=== PATIENT | female | born 1990 | race American Indian/Alaskan Native ===

== ENCOUNTER 2016-08-29 09:33 | Emergency (ER) | payer MEDICAID, OTHER | END 2016-08-29 23:01 | disposition home or self-care (01) | LOC: ED 09:33 | DX: L05.01 Pilonidal cyst with abscess (principal) ==

== ENCOUNTER 2016-08-31 17:36 | Emergency (ER) | payer MEDICAID ==
[2016-08-31 17:38] VITALS: BMI 18.6
[2016-08-31 17:43] VITALS: BP 121/77; RESP 19; TEMP 98.8; O2SAT 100
--- NOTE | 2016-08-31 17:51 | ED PDOC ---
Arrival/HPI - General Historian: Patient <Mindi Lira A - Last Filed: 08/31/16 18:44> <Sergey Torres - Last Filed: 08/31/16 18:59> - General Chief Complaint: Abnormal Skin Integrity Time Seen by Provider: 08/31/16 17:39 - History of Present Illness Narrative History of Present Illness (Text): 08/31/16 17:48 26yo female present to ED with complaint of abscess to her buttocks area x a week and half. States she was seen her few days ago for same compliant and I & D. Came back to ED because she is still having pain to the area. States it was not packed, but she only have a small drainage. States she is currently on amoxicillin. Denies fever, chills, any other complaint. (Mindi Lira A) Past Medical History - Provider Review Nursing Documentation Reviewed: Yes - Infectious Disease Hx of Infectious Diseases: None - Integumentary Hx Dermatological Disorder: Yes Other/Comment: multiple cysts I&D - Psychiatric Hx Substance Use: No - Anesthesia Hx Anesthesia: No <Mindi Lira A - Last Filed: 08/31/16 18:44> Family/Social History - Physician Review Nursing Documentation Reviewed: Yes Family/Social History: Unknown Family HX Smoking Status: Never Smoked Hx Alcohol Use: No Hx Substance Use: No <Mindi Lira A - Last Filed: 08/31/16 18:44> Allergies/Home Meds <Mindi Lira A - Last Filed: 08/31/16 18:44> <Sergey Torres - Last Filed: 08/31/16 18:59> Allergies/Adverse Reactions: Allergies No Known Allergies Allergy (Verified 08/31/16 17:41) Home Medications: Home Meds Medication Instructions Recorded Confirmed Vit No.126/Iron/Folic 1 each PO DAILY 08/31/16 08/31/16 [Classic Tablet] Review of Systems - Physician Review All systems were reviewed & negative as marked: Yes - Review of Systems Constitutional: Normal Eyes: Normal ENT: Normal Respiratory: Normal Cardiovascular: Normal Gastrointestinal: Normal Genitourinary Female: Normal Musculoskeletal: Normal Skin: Abscess (Buttocks) Neurological: Normal Endocrine: Normal Hemo/Lymphatic: Normal Psychiatric: Normal <Mindi Lira A - Last Filed: 08/31/16 18:44> Physical Exam Vital Signs Reviewed: Yes Temperature: Afebrile Blood Pressure: Normal Pulse: Regular Respiratory Rate: Normal Appearance: Positive for: Well-Appearing, Non-Toxic, Comfortable Pain Distress: None Mental Status: Positive for: Alert and Oriented X 3 - Systems Exam Head: Present: Atraumatic, Normocephalic Pupils: Present: PERRL Extroacular Muscles: Present: EOMI Conjunctiva: Present: Normal Mouth: Present: Moist Mucous Membranes Neck: Present: Normal Range of Motion Respiratory/Chest: Present: Clear to Auscultation, Good Air Exchange. No: Respiratory Distress, Accessory Muscle Use Cardiovascular: Present: Regular Rate and Rhythm, Normal S1, S2. No: Murmurs Abdomen: Present: Normal Bowel Sounds. No: Tenderness, Distention, Peritoneal Signs Back: Present: Normal Inspection Upper Extremity: Present: Normal Inspection. No: Cyanosis, Edema Lower Extremity: Present: Normal Inspection. No: Edema Neurological: Present: GCS=15, CN II-XII Intact, Speech Normal Skin: Present: Warm, Dry, Normal Color, Abscess (Approximately 5 x 4cm tender abscess noted to left buttocks cleft). No: Rashes Psychiatric: Present: Alert, Oriented x 3, Normal Insight, Normal Concentration <Diru,Happiness A - Last Filed: 08/31/16 18:44> - PA / MANAGER DEPARTMENT / Resident Statement /DO has examined the patient and agrees with the treatment plan. <Sergey Torres - Last Filed: 08/31/16 18:59> Disposition/Present on Arrival - Present on Arrival Any Indicators Present on Arrival: No History of DVT/PE: No History of Uncontrolled Diabetes: No Urinary Catheter: No History of Decub. Ulcer: No History Surgical Site Infection Following: None - Disposition Have Diagnosis and Disposition been Completed?: Yes Disposition Time: 18:15 Patient Plan: Discharge <Diru,Happiness A - Last Filed: 08/31/16 18:44> <Sergey Torres - Last Filed: 08/31/16 18:59> - Disposition Diagnosis: Abscess Disposition: HOME/ ROUTINE Condition: STABLE Discharge Instructions (ExitCare): Abscess Incision and Drainage (ED), Abscess (ED) Additional Instructions: Follow up with your Doctor Return to ED in 2days for packing removal Referrals: [facility] [place] [Outside] - Follow up with primary - Incision & Drainage Of Abscess Anesthesia: Lidocaine 1% (15ml) Prep Used: Sterile Water Procedure: Incised W/Scalpel Blade#: (10), Drained Pus, Probed To Break Up Loculations, Packed W/Gauze <Mindi Lira - Last Filed: 08/31/16 18:44>
[2016-08-31] MEDS ORDERED: Lidocaine 1% Inj (20ml) ONE (17:55)
[2016-08-31 18:27] VITALS: PULSE 99
== END 2016-08-31 18:29 | disposition home or self-care (01) ==
LOC: ED 17:36
DX: L02.31 Cutaneous abscess of buttock (principal)

== ENCOUNTER 2016-09-01 22:40 | Emergency (ER) | payer MEDICAID ==
[2016-09-01 22:40] VITALS: BMI 18.6
[2016-09-01 22:57] VITALS: BP 138/75; RESP 18; TEMP 98.8; O2SAT 98
--- NOTE | 2016-09-01 23:30 | ED PDOC ---
Arrival/HPI - General Historian: Patient <Dontrell Noonan - Last Filed: 09/01/16 23:47> <Osmel Price - Last Filed: 09/02/16 00:08> - General Chief Complaint: Abnormal Skin Integrity Time Seen by Provider: 09/01/16 23:13 - History of Present Illness Narrative History of Present Illness (Text): 09/01/16 23:53 26 y/o female, pmh including pilonoidal abscess, nkda, c/o here for the worsening pain of the incision site x 1 day. Pt. is approx. 5 months , currently on the amoxicillin with no relief, no fever or chills, no night sweat , no pelvic pain or vaginal bleeding, no urinary symptoms, no fever or chills, no headache or night sweat, no other medical or psychological complaints. (Dontrell Noonan) Past Medical History - Provider Review Nursing Documentation Reviewed: Yes - Infectious Disease Hx of Infectious Diseases: None - Integumentary Hx Dermatological Disorder: Yes Other/Comment: multiple cysts I&D - Psychiatric Hx Substance Use: No - Anesthesia Hx Anesthesia: No <Dontrell Noonan - Last Filed: 09/01/16 23:47> Family/Social History - Physician Review Nursing Documentation Reviewed: Yes Family/Social History: Unknown Family HX Smoking Status: Never Smoked Hx Alcohol Use: No Hx Substance Use: No <Dontrell Noonan - Last Filed: 09/01/16 23:47> Allergies/Home Meds <Dontrell Noonan - Last Filed: 09/01/16 23:47> <Osmel Price - Last Filed: 09/02/16 00:08> Allergies/Adverse Reactions: Allergies No Known Allergies Allergy (Verified 08/31/16 17:41) Home Medications: Home Meds Medication Instructions Recorded Confirmed Vit No.126/Iron/Folic 1 each PO DAILY 08/31/16 09/01/16 [Classic Tablet] Review of Systems - Review of Systems Constitutional: absent: Fatigue, Fevers Eyes: absent: Vision Changes ENT: absent: Hearing Changes Respiratory: absent: SOB, Cough Cardiovascular: absent: Chest Pain Gastrointestinal: absent: Abdominal Pain, Nausea, Vomiting Skin: Abscess. absent: Rash, Pruritis, Skin Lesions, Laceration, Ulcer, Cellulitis Psychiatric: absent: Anxiety, Depression, Suicidal Ideation <Dontrell Noonan - Last Filed: 09/01/16 23:47> Physical Exam Vital Signs Reviewed: Yes Temperature: Afebrile Blood Pressure: Normal Pulse: Tachycardic Respiratory Rate: Normal Appearance: Positive for: Well-Appearing, Non-Toxic, Comfortable Pain Distress: Moderate Mental Status: Positive for: Alert and Oriented X 3 - Systems Exam Head: Present: Atraumatic, Normocephalic Pupils: Present: PERRL Extroacular Muscles: Present: EOMI Conjunctiva: Present: Normal Mouth: Present: Moist Mucous Membranes Neck: Present: Normal Range of Motion Respiratory/Chest: Present: Clear to Auscultation, Good Air Exchange. No: Respiratory Distress, Accessory Muscle Use Cardiovascular: Present: Regular Rate and Rhythm, Normal S1, S2. No: Murmurs Abdomen: Present: Normal Bowel Sounds. No: Tenderness, Distention, Peritoneal Signs Back: Present: Normal Inspection Upper Extremity: Present: Normal Inspection. No: Cyanosis, Edema Lower Extremity: Present: Normal Inspection. No: Edema Neurological: Present: GCS=15, Speech Normal, Motor Func Grossly Intact, Gait Normal, Memory Normal Skin: Present: Warm, Dry, Rashes (approx. [id number] fluctuant on the pilonoidal region with opening of the abscess with additional iodofoam packing, no cellulitis or streaking. ), Normal Color Psychiatric: Present: Alert, Oriented x 3, Normal Insight, Normal Concentration <Dontrell Noonan - Last Filed: 09/01/16 23:47> Medical Decision Making <Dontrell Noonan - Last Filed: 09/01/16 23:47> <Osmel Price - Last Filed: 09/02/16 00:08> ED Course and Treatment: 09/01/16 23:48 -clindamycin, discontinue the amoxicillin -sensation intact, motor 5/5, wound clean with saline, clean with betadine, 1cc of plain lidocaine 1% (class B ) injected locally, visible 4 inches of the packing noted with there is more fluctuant noted, #11 blade made additional 1cm incision, approx. 60cc of purulant abscess released, irrigated with 100cc of normal saline until all the abscess purulant released, hemostasis obtained, iodofoam packing inserted, xerofoam and gauze dressing. -Pt. feels much better now. -Vitally stable, will discharge home. will change the amoxicillin to the clindamycin as it has no MRSA coverage. -Discharge home with clindamycin (class B for ), discontinue amoxicillin at home, take tylenol for pain at home as needed, keep the dressing dry and clean, return to the ER in 48 hours for wound check and dressing change , follow with your own pmd and general surgeon within 2 days, return to the ER for any new or worsening signs or symptoms. (Dontrell Noonan) - Medication Orders Current Medication Orders: Discontinued Medications Acetaminophen (Tylenol 325mg Tab) 650 mg PO STAT STA Stop: 09/02/16 00:00 Clindamycin HCl (Cleocin) 300 mg PO STAT STA PRN Reason: Protocol Stop: 09/01/16 23:48 - PA / CRYPTOGRAPHER / Resident Statement ROSE MARIE has reviewed & agrees with the documentation as recorded. <Dontrell Noonan - Last Filed: 09/01/16 23:47> - PA / CRYPTOGRAPHER / Resident Statement ROSE MARIE has reviewed & agrees with the documentation as recorded. <Osmel Price - Last Filed: 09/02/16 00:08> Disposition/Present on Arrival - Present on Arrival Any Indicators Present on Arrival: No History of DVT/PE: No History of Uncontrolled Diabetes: No Urinary Catheter: No History of Decub. Ulcer: No History Surgical Site Infection Following: None - Disposition Have Diagnosis and Disposition been Completed?: Yes Disposition Time: 23:48 Patient Plan: Discharge <Dontrell Noonan - Last Filed: 09/01/16 23:47> <Osmel Price - Last Filed: 09/02/16 00:08> - Disposition Diagnosis: Pilonidal abscess Disposition: HOME/ ROUTINE Condition: IMPROVED Additional Instructions: Discharge home with clindamycin (class B for ), discontinue amoxicillin at home, take tylenol for pain at home as needed, keep the dressing dry and clean, return to the ER in 48 hours for wound check and dressing change , follow with your own pmd and general surgeon within 2 days, return to the ER for any new or worsening signs or symptoms. Prescriptions: Clindamycin [Cleocin] 300 mg PO TID #21 cap Referrals: Charlie Meade MD [Staff Provider] - Follow up with primary Deya,Oli, DO [Staff Provider] - Follow up with primary Forms: WORK NOTE
[2016-09-02 00:51] VITALS: PULSE 100
== END 2016-09-02 00:39 | disposition home or self-care (01) ==
LOC: ED 22:40
DX: L05.01 Pilonidal cyst with abscess (principal)